=== PATIENT | female | born 1985 | race Hispanic/Latino ===

== ENCOUNTER 2021-09-02 14:22 | Outpatient (CLI) | payer OTHER | END 2021-09-02 14:23 | disposition home or self-care (01) | LOC: TBSIIMAG 14:22 | PROVIDERS: ATTEND Neurological Surgery | DX: M54.50 Low back pain, unspecified (principal); M47.816 Spondylosis without myelopathy or radiculopathy, lumbar region; M51.26 Other intervertebral disc displacement, lumbar region; M48.061 Spinal stenosis, lumbar region without neurogenic claudication | CPT/HCPCS: 72100; 72148 ==

== ENCOUNTER 2021-09-08 11:45 | Outpatient (CLI) | payer OTHER ==
[2021-09-08 14:38] LABS: Mean Corpuscular HGB CONC 34.1 g/dL (32.0-36.0); Mean Corpuscular Hemoglobin 30.6 pg (27.0-33.0); Mean Corpuscular Volume 89.7 fl (81.6-98.3); Mean Platelet Volume 9.4 fl (7.4-10.4); Platelet Count 293 10x3/uL (150-450); RBC Distribution Width 12.5 % (11.5-14.5); Red Blood Cell (RBC) Count 4.58 10x6/uL (3.90-5.03)
[2021-09-08 15:07] LABS: INR-International Normal Ratio 0.9; Prothrombin Time 9.8 sec (9.5-12.1)
[2021-09-09 07:54] LABS: SARS-CoV-2 PCR by NAA Not Detected (NotDetected)
== END 2021-09-08 11:46 | disposition home or self-care (01) ==
LOC: LABBT 11:45
PROVIDERS: ATTEND Neurological Surgery
DX: Z01.812 Encounter for preprocedural laboratory examination (principal); M51.26 Other intervertebral disc displacement, lumbar region; Z20.822 Contact with and (suspected) exposure to COVID-19
CPT/HCPCS: 85027; 85610; 85730; U0003; U0005

== ENCOUNTER 2021-09-11 10:48 | Day surgery (SDC) | payer OTHER ==
[2021-09-11] MEDS ORDERED: Neomycin-Polymyxin 1 ML AMP ONE (11:39)
[2021-09-11] MEDS ORDERED: Bupivacaine PF 0.5% 30 ML VIAL ONE (11:39)
[2021-09-11] MEDS ORDERED: EPINEPHrine 1 MG/ML AMP ONE (11:39)
[2021-09-11] MEDS ORDERED: Thrombin 5000 UNITS/5 ML VIAL ONE (11:39)
[2021-09-11] MEDS ORDERED: Famotidine/PF 20 mg/2ml Vial ONE (12:47)
[2021-09-11] MEDS ORDERED: ceFAZolin Sodium (SDC) 2 GM/100 ML BAG ONE (12:55)
[2021-09-11] MEDS ORDERED: Fentanyl 250 MCG/5 ML VIAL ONE ×2 (12:56→15:11)
[2021-09-11] MEDS ORDERED: PROPOFOL 200 MG/20 ML VIAL ONE (13:13)
[2021-09-11] MEDS ORDERED: Ketorolac Tromethamine 30 MG/ML VIAL ONE (13:13)
[2021-09-11] MEDS ORDERED: Rocuronium Bromide 10 MG/ML (10ML VIAL) ONE ×2 (13:13)
[2021-09-11] MEDS ORDERED: Lidocaine 1% PF 5 ML VIAL ONE (13:13)
[2021-09-11] MEDS ORDERED: Ondansetron PF 4 MG/2 ML Vial ONE (13:13)
[2021-09-11] MEDS ORDERED: Dexamethasone 20 MG/5 ML VIAL ONE (13:13)
[2021-09-11] MEDS ORDERED: HYDROcodone/Acetaminophen 10/325 mg Tablet PO PRN (14:48)
[2021-09-11] MEDS ORDERED: Promethazine HCl 25 MG/ML VIAL IM PRN (14:48)
[2021-09-11] MEDS ORDERED: Bisacodyl 10 MG SUPP PR PRN (14:48)
[2021-09-11] MEDS ORDERED: Cyclobenzaprine 10 MG TAB PO PRN (14:48)
[2021-09-11] MEDS ORDERED: diphenhydrAMINE 50 MG/ML VIAL IVP PRN (14:48)
[2021-09-11] MEDS ORDERED: Acetaminophen/Codeine 30-300mg Tablet PO PRN (14:48)
[2021-09-11] MEDS ORDERED: HYDROcodone/Acetaminophen 7.5/325 mg Tablet PO PRN (14:48)
[2021-09-11] MEDS ORDERED: Ondansetron PF 4 MG/2 ML Vial IVP PRN (14:48)
[2021-09-11] MEDS ORDERED: Mag-Al 1200 mg/1200 mg/30 ML UDCUP PO PRN (14:48)
[2021-09-11] MEDS ORDERED: SUGAMMADEX SODIUM 200 MG/2 ML VIAL ONE (14:54)
[2021-09-11] MEDS ORDERED: Sodium Chloride 0.9% 1,000 ML IV SCH (15:00)
[2021-09-11] MEDS ORDERED: Promethazine HCl 25 MG/ML VIAL ONE (15:26)
[2021-09-11] MEDS ORDERED: Cyclobenzaprine 10 MG TAB ONE (15:45)
[2021-09-11] MEDS ORDERED: Morphine 4 MG/ML VIAL ONE (16:23)
[2021-09-11] MEDS ORDERED: HYDROcodone/Acetaminophen 5/325 mg Tablet ONE ×2 (16:44→17:58)
== END 2021-09-11 18:01 | disposition home or self-care (01) ==
LOC: SDC 10:48
PROVIDERS: ATTEND Neurological Surgery
PROC: 01NB0ZZ Release Lumbar Nerve, Open Approach (ICD-10-PCS; principal; 2021-09-11)
DX: M48.061 Spinal stenosis, lumbar region without neurogenic claudication (principal); M51.16 Intervertebral disc disorders with radiculopathy, lumbar region; E66.9 Obesity, unspecified; Z68.30 Body mass index [BMI] 30.0-30.9, adult
CPT/HCPCS: 76000; J0171; J0690; J1100; J1885; J2270; J2405; J2550; J2704; J3010; J3370; S0020; S0028